=== PATIENT | male | born 1980 | race Caucasian/White ===

== ENCOUNTER 2020-04-27 04:31 | Emergency (ER) | payer SELFPAY ==
[2020-04-27 04:35] VITALS: BP 174/105; PULSE 104; RESP 19; TEMP 36.8; O2SAT 98; BMI 34.8
--- NOTE | 2020-04-27 05:01 | ED_ITS ---
HPI - General Adult General Chief complaint: Anxiety Stated complaint: Anxiety Time Seen by Provider: 04/27/20 04:38 Source: patient Mode of arrival: EMS Limitations: no limitations History of Present Illness HPI narrative: Patient is a 40-year-old male brought in by EMS after he called 911 because of having a panic attack. Patient states that he has had anxiety and panic attacks in the past. He states that he has been on benzodiazepines for many years and came off of them on his own. He does see a mental health provider. He also admits to smoking methamphetamine. He states that he is uncertain as to what caused his symptoms this evening although he does state that he has been around other ?hard core ?meth that aches and states he received some texts earlier today that concerned him. Related Data Allergies Allergy/AdvReac Type Severity Reaction Status Date / Time No Known Drug Allergies Allergy Verified 04/27/20 05:02 Review of Systems Constitutional Constitutional: Denies fever(s) and Denies headache(s) ENT Ears, Nose, Mouth, and Throat: Denies headache(s) Cardiovascular Cardiovascular: Denies chest pain and Denies dyspnea Respiratory Respiratory: Denies dyspnea Gastrointestinal Gastrointestinal: Denies abdominal pain, Denies nausea and Denies vomiting Musculoskeletal Musculoskeletal: Denies arthralgias and Denies myalgias Integumentary/Breasts Skin/Breast: Denies rash Neurologic Neurologic: Denies headache(s) Psychiatric Psychiatric: Reports anxiety, Denies depression, Reports panic attacks and Reports paranoia Patient History Medical History Anxiety (Acute) Drug abuse (Acute) Social History Smoking Status: Former smoker Exam Initial Vital Signs Initial Vital Signs: Vital Signs Temperature 98.3 F 04/27/20 04:35 Pulse Rate 104 H 04/27/20 04:35 Respiratory Rate 19 04/27/20 04:35 Blood Pressure 174/105 H 04/27/20 04:35 Pulse Oximetry 98 04/27/20 04:35 Const General: cooperative and disheveled HENMT Head: normal to inspection and normocephalic Resp Effort & Inspection: normal respiratory effort Auscultation: clear to auscultation bilaterally Cardio Rate: regular rate Rhythm: regular rhythm Skin Rashes: no rashes Neuro General: patient alert, patient awake and patient oriented x3 Extrem General: capillary refill normal Psych Appearance: disheveled Speech and Movement: restless Mood: anxious mood Affect: anxious affect and No hostile Attitude: cooperative Thought Content: phobias and suicidality Course Vital Signs Vital signs: Vital Signs - 8 hr 04/27/20 04:35 Temperature 98.3 F Pulse Rate 104 H Respiratory Rate 19 Blood Pressure 174/105 H Pulse Oximetry 98 Medical Decision Making ECG Data Attestation: I personally reviewed and interpreted this ECG as follows: Prior ECG tracings: not available for review Interpretation: Sinus rhythm Normal axis Normal QRS Normal QTC No ST T wave changes MDM Narrative Medical decision making narrative: Patient was alert oriented x3 with a GCS of 15. When I asked the patient what I could do for him out of the emergency department stated that he just wanted ?reassurance that everything was going to be okay. He states he did not want any medications. He did not want to go back on any benzodiazepines. Patient is somewhat tangential with his thoughts and I do suspect that he is having quite a bit of paranoia however denied any SI or HI. He states that he felt safe back at the [facility] where he is staying. He did mention that he does smoke methamphetamine which I suspect is not helping his situation. I do not feel that the patient meets criteria for grave disability. Do not feel the patient meets criteria for an involuntary admission to the hospital. He stated the emergency department for short period of time states that he did feel better. Feel patient can be safely discharged home. Patient states he feels safe to be sent back where he is staying. He was given return precautions. He expressed understanding and agreement. Discharge Plan Departure Patient Disposition: Home Clinical Impression: Acute anxiety Instructions: DI for Anxiety -- Adult Activity Restrictions/Additional Instructions: Recommend that you continue any and all medications as directed. I recommend that you contact your primary provider for a follow-up. Return to the emergency department for any new or worsening symptoms
[2020-04-27 06:10] VITALS: BP 142/86; PULSE 87; RESP 17; O2SAT 97
== END 2020-04-27 06:11 | disposition home or self-care (01) ==
PROVIDERS: Emergency Provider Emergency Medicine
DX: F41.9 Anxiety disorder, unspecified (principal)
CPT/HCPCS: 93005; 99282; 99283

== ENCOUNTER 2020-05-05 05:49 | Emergency (ER) | payer SELFPAY ==
[2020-05-05 05:51] VITALS: BP 110/59; PULSE 63; RESP 18; TEMP 36.2; O2SAT 98; BMI 33.9
--- NOTE | 2020-05-05 05:56 | ED.AMS ---
HPI - Altered Mental Status <Ferny Henry DO - Last Filed: 05/06/20 18:06> General Chief Complaint: Medical Clearance Stated Complaint: fit for skilled nursing Time Seen by Provider: 05/05/20 05:50 Source: patient and police Limitations: no limitations History of Present Illness HPI narrative: 40-year-old male smoker with history of alcohol abuse and anxiety presents with the police department for medical clearance prior to incarceration. The patient was found reporting libertarian and appeared to be passed out in his car. Apparently, police approached him and he attempted to drive his car away. He was then apprehended and brought initially just for a blood draw but then a medical clearance. Patient has no complaints to me, but seems to be upset with police. He denies headache. blurred vision, CP, or SOB. He denies N/V/D. He was involved in no traumatic events and denies any injury. He denies alcohol or street drugs. MD complaint: intoxication Context: alcohol abuse Associated symptoms: denies other symptoms Related Data Allergies Allergy/AdvReac Type Severity Reaction Status Date / Time No Known Drug Allergies Allergy Verified 04/27/20 05:02 Review of Systems <Ferny Henry DO - Last Filed: 05/06/20 18:06> Constitutional Constitutional: Denies chills, Denies fatigue, Denies fever(s), Denies frequent falls, Denies lethargy and Denies weakness Eyes Eyes: Denies change in vision, Denies eye discharge, Denies irritation and Denies loss of vision ENT Ears, Nose, Mouth, and Throat: Denies change in voice, Denies dizziness, Denies neck pain, Denies sore throat and Denies throat swelling Cardiovascular Cardiovascular: Denies chest pain, Denies irregular heart rhythm, Denies lightheadedness, Denies palpitations, Denies dyspnea, Denies dyspnea on exertion and Denies orthopnea Respiratory Respiratory: Denies cough, Denies dyspnea, Denies dyspnea on exertion and Denies wheezing Gastrointestinal Gastrointestinal: Denies abdominal pain, Denies change in bowel habits, Denies diarrhea, Denies nausea and Denies vomiting Musculoskeletal Musculoskeletal: Denies neck pain and Denies numbness Integumentary/Breasts Skin/Breast: Denies pruritus, Denies erythema, Denies rash and Denies wounds Neurologic Neurologic: Denies behavioral changes, Denies confusion, Denies dizziness, Denies frequent falls, Denies loss of vision, Denies numbness and Denies weakness Psychiatric Psychiatric: Denies anxiety, Denies behavioral changes, Denies confusion, Denies depression, Denies homicidal ideation and Denies suicidal ideation Endocrine Endocrine: Denies fatigue, Denies flushing and Denies palpitations Hematologic/Lymphatic Hematologic/Lymphatic: Denies easy bruising Allergic/Immunologic Allergic/Immunologic: Denies urticaria, Denies throat swelling and Denies wheezing Patient History <Ferny Henry DO - Last Filed: 05/06/20 18:06> Medical History (Updated 05/06/20 @ 16:53 by Pacheco Butterfield MD) Anxiety (Acute) Drug abuse (Acute) Social History Smoking Status: Former smoker Smoking Status: Former smoker Substance Use Type: methamphetamine Exam <Ferny Henry DO - Last Filed: 05/06/20 18:06> Narrative Exam Narrative: GENERAL: [40} year old patient appears stated age. Well-nourished, well-developed patient, in mild distress.Mild slurring, increasingly agitated HEAD: Superficial abrasions on forehead EYES: Pupils equal round and reactive. Extraocular motions intact. No scleral icterus. No injection or drainage. ENT: Nose without bleeding, purulent drainage. Throat without erythema, tonsillar hypertrophy or exudate. Airway patent. NECK: Trachea midline. Non tender CARDIOVASCULAR: Regular rate and rhythm without murmurs, gallops, or rubs. RESPIRATORY: Clear to auscultation. Breath sounds equal bilaterally. No wheezes, rales, or rhonchi. GASTROINTESTINAL: Abdomen soft, non-tender, nondistended. EXTREMITIES: No edema or joint tenderness. BACK: Nontender without deformity or crepitance. No flank tenderness. NEURO: AOx3. SKIN: No rash or erythema of visible areas Initial Vital Signs Initial Vital Signs: Vital Signs Temperature 97.2 F L 05/05/20 05:51 Pulse Rate 63 05/05/20 05:51 Respiratory Rate 18 05/05/20 05:51 Blood Pressure 110/59 L 05/05/20 05:51 Pulse Oximetry 98 05/05/20 05:51 <Pacheco Butterfield MD - Last Filed: 05/06/20 19:00> Initial Vital Signs Initial Vital Signs: Vital Signs Temperature 97.2 F L 05/05/20 05:51 Pulse Rate 63 05/05/20 05:51 Respiratory Rate 18 05/05/20 05:51 Blood Pressure 110/59 L 05/05/20 05:51 Pulse Oximetry 98 05/05/20 05:51 Course <Ferny Henry, DO - Last Filed: 05/06/20 18:06> Course Course Narrative: patient was in process of being cleared and apparently told PD he intended to kill himself by blowing his head off with a shotgun. At that point he tried running from the ED and was contained by PD. He is rapidly escalating and then escorted to room 13 for the protection of patient and staff. Multiple attempts by myself and others to verbally de-escalate and he continues to ramp up and again staff is cleared from the room and PD need to contain him. At this point decision made to use chemical sedation to prevent patient from injuring himself or others and to allow a thorough medical examination. 2100 05/05/2020 Patient Appearance: Disheveled LOC: Alert Speech: Spontaneous, pressured Mood: Angry, anxious Respirations: Normal rate and effort Cardiac: Regular rate and rhythm Behavior: Increased agitation, new threats of suicide, failure of verbal de-escalation Restraint Risk Explained to Patient/Family?: Yes patient ended up responding to verbal deescalation and did not need medications, but kept trying to leave so he was put in locked seclusion. He once again threatened suicide, this time stating he would slit his throat per nursing, i did not hear him say this. He is medically cleared. He makes multiple threats of suicide with plan. He does not want help or think he needs it. He requires hospitalization at mental health facility to help further characterize and stabilize his condition. Susan (SILVANO) has reached out to and has a significant amount of information that has shed some light on this case. 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 His and daughter left him. He lost his job at [employer] and they sold the house. He now lives out of a trailer and frequently has these violent outbursts and threatens to hurt himself but has never acted on any threats. She will be reaching out to a few facilities which may be able to provide help and will let us know as the day wears on. Dr. Delacruz [phone] is prescriber in [place] Orders Ordered: Buprenorphine/Naloxone (Suboxone 8/2 Mg Sl) 3 tab SL DAILY DAMASO Last Admin: 05/06/20 12:21 Dose: 3 tab Documented by: RICKEY Discontinued Medications Cephalexin HCl (Keflex) 500 mg PO NOW ONE Stop: 05/06/20 02:23 Last Admin: 05/06/20 09:31 Dose: 500 mg Documented by: RICKEY Diphenhydramine HCl (Benadryl) 50 mg IM NOW ONE Stop: 05/05/20 06:21 Last Admin: 05/05/20 06:25 Dose: 50 mg Documented by: JOEL Diphenhydramine HCl (Benadryl) 50 mg IM NOW ONE Stop: 05/05/20 21:11 Last Admin: 05/05/20 22:13 Dose: Not Given Documented by: HORTENCIA Diphenhydramine HCl (Benadryl) 50 mg IM NOW ONE Stop: 05/06/20 11:47 Last Admin: 05/06/20 12:10 Dose: 50 mg Documented by: PATSY Diphenhydramine HCl (Benadryl) 50 mg IM NOW ONE Stop: 05/06/20 11:48 Last Admin: 05/06/20 12:18 Dose: Not Given Documented by: RICKEY Haloperidol (Haldol) 5 mg IM NOW ONE Stop: 05/05/20 06:21 Last Admin: 05/05/20 06:25 Dose: 5 mg Documented by: JOEL Haloperidol (Haldol) 5 mg IM NOW ONE Stop: 05/05/20 21:11 Last Admin: 05/05/20 22:13 Dose: Not Given Documented by: HORTENCIA Haloperidol (Haldol) 5 mg IM NOW ONE Stop: 05/06/20 11:47 Last Admin: 05/06/20 12:10 Dose: 5 mg Documented by: PATSY Haloperidol (Haldol) 5 mg IM NOW ONE Stop: 05/06/20 11:49 Last Admin: 05/06/20 12:18 Dose: Not Given Documented by: RICKEY Lorazepam (Ativan) 2 mg IM NOW ONE Stop: 05/05/20 06:21 Last Admin: 05/05/20 06:25 Dose: 2 mg Documented by: JOEL Lorazepam (Ativan) 2 mg IM NOW ONE Stop: 05/05/20 21:11 Last Admin: 05/05/20 22:13 Dose: Not Given Documented by: HORTENCIA Lorazepam (Ativan) 2 mg IM NOW ONE Stop: 05/06/20 11:47 Last Admin: 05/06/20 12:09 Dose: 2 mg Documented by: PATSY Lorazepam (Ativan) 2 mg IM NOW ONE Stop: 05/06/20 11:49 Last Admin: 05/06/20 12:18 Dose: Not Given Documented by: RICKEY Lorazepam (Ativan) 2 mg PO NOW ONE Stop: 05/06/20 16:26 Last Admin: 05/06/20 16:33 Dose: 2 mg Documented by: RICKEY Vital Signs Vital signs: Vital Signs - 8 hr 05/06/20 16:41 Temperature 97.5 F L Pulse Rate 86 Respiratory Rate 16 Blood Pressure 147/80 H Pulse Oximetry 97 <Pacheco Butterfield MD - Last Filed: 05/06/20 19:00> Course Course Narrative: 0725: CHANGE OF SHIFT TRANSFER OF CARE NOTE: Report was provided by . Patient was initially brought in by the police department after reveals found in a car at [place]. The patient was reportedly trying to drive off but was unable to do so because he was impaired and under the influence of something. Initially the patient came in for medical clearance. The patient is chronically on benzodiazepines. The patient then made the statement that he wanted to kill himself by blowing his head off with a shotgun. The patient became agitated and violent. He was administered 5 mg of Haldol and 2 mg of Ativan and 50 mg of Benadryl. Patient was not intoxicated with alcohol. The patient was reported to also be on meds Suboxone. Police brought the patient in with an OBDULIA. The patient is not a voluntary the and may need to be changed to a DCR. A consult with medical social work has been submitted. A restraint order has been initiated by Dr. Henry with a sitter present. 1149: CHANGE IN SHIFT TRANSFER OF CARE NOTE 05/06/2020: THE POLICE WERE CALLED TO RESTRAIN THE PATIENT WHEN HE RAN OUT OF THE EMERGENCY DEPARTMENT AND WAS ESCORTED BACK INTO ROOM 13. The patient has become violent and threatening and beating on the persaud and doors. The patient will be administered Haldol 5 mg IM, Ativan 2 mg IM and Benadryl 50 mg IM. The patient is being further evaluated by SILVANO who is calling and talking to multiple members and the patient's physicians to make a determination for this patient. The patient earlier had told Dr. Henry that he wanted to commit suicide and blow his head off with a shotgun. I just spoke with the patient's outpatient psychiatrist Dr. Delacruz who states that he has been using the Suboxone 24 mg per day to help control and manage his the arm depression and activities. He placing the patient back on his Suboxone 24 mg which may help to manage his behavior. He agrees with having DCR evaluate the patient because the patient has been headed in this direction of for a while. SILVANO and LUANNE Perez presented the patient with a court order to be sent to a [facility] to be evaluated. Orders Ordered: Buprenorphine/Naloxone (Suboxone 8/2 Mg Sl) 3 tab SL DAILY DAMASO Last Admin: 05/06/20 12:21 Dose: 3 tab Documented by: RICKEY Discontinued Medications Cephalexin HCl (Keflex) 500 mg PO NOW ONE Stop: 05/06/20 02:23 Last Admin: 05/06/20 09:31 Dose: 500 mg Documented by: RICKEY Diphenhydramine HCl (Benadryl) 50 mg IM NOW ONE Stop: 05/05/20 06:21 Last Admin: 05/05/20 06:25 Dose: 50 mg Documented by: JOEL Diphenhydramine HCl (Benadryl) 50 mg IM NOW ONE Stop: 05/05/20 21:11 Last Admin: 05/05/20 22:13 Dose: Not Given Documented by: HORTENCIA Diphenhydramine HCl (Benadryl) 50 mg IM NOW ONE Stop: 05/06/20 11:47 Last Admin: 05/06/20 12:10 Dose: 50 mg Documented by: PATSY Diphenhydramine HCl (Benadryl) 50 mg IM NOW ONE Stop: 05/06/20 11:48 Last Admin: 05/06/20 12:18 Dose: Not Given Documented by: RICKEY Haloperidol (Haldol) 5 mg IM NOW ONE Stop: 05/05/20 06:21 Last Admin: 05/05/20 06:25 Dose: 5 mg Documented by: JOEL Haloperidol (Haldol) 5 mg IM NOW ONE Stop: 05/05/20 21:11 Last Admin: 05/05/20 22:13 Dose: Not Given Documented by: HORTENCIA Haloperidol (Haldol) 5 mg IM NOW ONE Stop: 05/06/20 11:47 Last Admin: 05/06/20 12:10 Dose: 5 mg Documented by: PATSY Haloperidol (Haldol) 5 mg IM NOW ONE Stop: 05/06/20 11:49 Last Admin: 05/06/20 12:18 Dose: Not Given Documented by: RICKEY Lorazepam (Ativan) 2 mg IM NOW ONE Stop: 05/05/20 06:21 Last Admin: 05/05/20 06:25 Dose: 2 mg Documented by: JOEL Lorazepam (Ativan) 2 mg IM NOW ONE Stop: 05/05/20 21:11 Last Admin: 05/05/20 22:13 Dose: Not Given Documented by: HORTENCIA Lorazepam (Ativan) 2 mg IM NOW ONE Stop: 05/06/20 11:47 Last Admin: 05/06/20 12:09 Dose: 2 mg Documented by: PATSY Lorazepam (Ativan) 2 mg IM NOW ONE Stop: 05/06/20 11:49 Last Admin: 05/06/20 12:18 Dose: Not Given Documented by: RICKEY Lorazepam (Ativan) 2 mg PO NOW ONE Stop: 05/06/20 16:26 Last Admin: 05/06/20 16:33 Dose: 2 mg Documented by: RICKEY Vital Signs Vital signs: Vital Signs - 8 hr 05/06/20 16:41 Temperature 97.5 F L Pulse Rate 86 Respiratory Rate 16 Blood Pressure 147/80 H Pulse Oximetry 97 MDM - Altered Mental Status <Ferny Henry DO - Last Filed: 05/06/20 18:06> Lab Data Result diagrams: 05/05/20 06:35 05/05/20 06:35 Labs: Lab Results 05/05/20 05/05/20 05/05/20 Range/Units 06:35 06:35 06:35 WBC 11.2 H (4.5-11.0) X10^3/uL RBC 5.17 (4.5-5.9) X10^6/uL Hgb 13.8 (13.5-17.5) g/dL Hct 42.1 (41-53) % MCV 81.5 (80-100) fL MCH 26.7 (26-34) PG MCHC 32.8 (30-36) % RDW 17.0 H (11.6-14.8) % Plt Count 244 (150-400) X10^3/uL Neut % (Auto) 60.2 (50-75) % Lymph % (Auto) 22.6 L (25-40) % [place] % (Auto) 8.6 (3-14) % Eos % (Auto) 7.5 H (2-4) % Baso % (Auto) 1.1 (0-2) % Neut # (Auto) 6800 (7957-6618) /uL Lymph # (Auto) 2500 (7872-8496) /uL [place] # (Auto) 1000 H (0-900) /uL Eos # (Auto) 800 H (0-450) /uL Baso # (Auto) 100 (0-100) /uL Sodium 139 (137-145) mmol/L Potassium 4.1 (3.4-5.1) mmol/L Chloride 102 (98-107) mmol/L Carbon Dioxide 34 H (22-32) mmol/L BUN 20 (9-20) mg/dL Creatinine 0.71 (0.66-1.25) mg/dL Estimated GFR > 60.0 (>60) mL/min BUN/Creatinine Ratio 28.2 H (6-22) Glucose 119 H (70-100) mg/dL Calcium 10.1 (8.4-10.2) mg/dL Total Bilirubin 0.5 (0.2-1.3) mg/dL AST 30 (17-59) IU/L ALT 40 (<50) IU/L Alkaline Phosphatase 81 (38-126) U/L Total Protein 7.6 (6.3-8.2) g/dL Albumin 4.7 (3.5-5.0) g/dL Globulin 2.9 (1.7-4.1) g/dL Albumin/Globulin Ratio 1.6 (1.0-2.8) TSH 1.04 (0.47-4.68) uIU/mL Urine Color Urine Appearance Urine pH (4.5-8.0) Ur Specific [place] (1.000-1.035) Urine Protein (Negative) Urine Glucose (UA) (Negative) g/dL Urine Ketones (NEGATIVE) Urine Occult Blood (Negative) Urine Nitrate (Negative) Urine Bilirubin (NEGATIVE) Urine Urobilinogen (0.2) E.U./dL Ur Leukocyte Esterase (NEGATIVE) Urine RBC (0-5/HPF) Urine WBC (0-5/HPF) Ur Squamous Epith Cells (0-5/HPF) Amorphous Sediment Urine Bacteria (None) Urine Mucus (Negative) Ur Culture Indicated? Salicylates < 1.0 (<20) mg/dL U Opiates 300ng/mL cut (Negative) Ur Oxycodone Screen (Negative) Urine Methadone Screen (Negative) Acetaminophen < 10 L (10-30) ug/mL Ur Barbiturates Screen (Negative) U Tricyclic Antidepress (Negative) Ur Phencyclidine Scrn (Negative) Ur Amphetamines Screen (Negative) U Methamphetamines Scrn (Negative) Ur MDMA Scrn (Ecstasy) (Negative) U Benzodiazepines Scrn (Negative) Urine Cocaine Screen (Negative) U Marijuana (THC) Screen (Negative) Ethyl Alcohol < 10 ( - 10) mg/dL 05/05/20 05/05/20 05/05/20 Range/Units 06:52 06:52 18:15 WBC (4.5-11.0) X10^3/uL RBC (4.5-5.9) X10^6/uL Hgb (13.5-17.5) g/dL Hct (41-53) % MCV (80-100) fL MCH (26-34) PG MCHC (30-36) % RDW (11.6-14.8) % Plt Count (150-400) X10^3/uL Neut % (Auto) (50-75) % Lymph % (Auto) (25-40) % [place] % (Auto) (3-14) % Eos % (Auto) (2-4) % Baso % (Auto) (0-2) % Neut # (Auto) (7554-1643) /uL Lymph # (Auto) (5183-8137) /uL [place] # (Auto) (0-900) /uL Eos # (Auto) (0-450) /uL Baso # (Auto) (0-100) /uL Sodium (137-145) mmol/L Potassium (3.4-5.1) mmol/L Chloride (98-107) mmol/L Carbon Dioxide (22-32) mmol/L BUN (9-20) mg/dL Creatinine (0.66-1.25) mg/dL Estimated GFR (>60) mL/min BUN/Creatinine Ratio (6-22) Glucose (70-100) mg/dL Calcium (8.4-10.2) mg/dL Total Bilirubin (0.2-1.3) mg/dL AST (17-59) IU/L ALT (<50) IU/L Alkaline Phosphatase (38-126) U/L Total Protein (6.3-8.2) g/dL Albumin (3.5-5.0) g/dL Globulin (1.7-4.1) g/dL Albumin/Globulin Ratio (1.0-2.8) TSH (0.47-4.68) uIU/mL Urine Color Yellow Urine Appearance Slightly cloudy Urine pH 5.5 (4.5-8.0) Ur Specific [place] 1.025 (1.000-1.035) Urine Protein 1+ H (Negative) Urine Glucose (UA) Negative (Negative) g/dL Urine Ketones Negative (NEGATIVE) Urine Occult Blood Negative (Negative) Urine Nitrate Positive (Negative) Urine Bilirubin Negative (NEGATIVE) Urine Urobilinogen 0.2 (0.2) E.U./dL Ur Leukocyte Esterase Trace H (NEGATIVE) Urine RBC 0-1/hpf None seen (0-5/HPF) Urine WBC 5-10/hpf H 30-100/hpf H D (0-5/HPF) Ur Squamous Epith Cells 1-5 /hpf (0-5/HPF) Amorphous Sediment 1+ Urine Bacteria Moderate (10-30) H Moderate (10-30) H (None) Urine Mucus 2+ H (Negative) Ur Culture Indicated? Specimen cultured Specimen cultured Salicylates (<20) mg/dL U Opiates 300ng/mL cut Negative (Negative) Ur Oxycodone Screen Negative (Negative) Urine Methadone Screen Negative (Negative) Acetaminophen (10-30) ug/mL Ur Barbiturates Screen Negative (Negative) U Tricyclic Antidepress Negative (Negative) Ur Phencyclidine Scrn Negative (Negative) Ur Amphetamines Screen Negative (Negative) U Methamphetamines Scrn Negative (Negative) Ur MDMA Scrn (Ecstasy) Negative (Negative) U Benzodiazepines Scrn Positive H (Negative) Urine Cocaine Screen Negative (Negative) U Marijuana (THC) Screen Negative (Negative) Ethyl Alcohol ( - 10) mg/dL Urine Dip Bedside Urine Glucose Negative Bedside Urine Bilirubin - Negative Bedside Urine Ketone - Negative Urine Specific [place] 1.025 Bedside Urine Occult Blood - Negative Bedside Urine pH 6.0 Bedside Urine Protein + 30 Bedside Urine Urobilinogen +/- 1mg Bedside Urine Nitrite + Positive Bedside Urine Leukocytes + 70 Esterase <Pacheco Butterfield MD - Last Filed: 05/06/20 19:00> Lab Data Labs: Lab Results 05/05/20 05/05/20 05/05/20 Range/Units 06:35 06:35 06:35 WBC 11.2 H (4.5-11.0) X10^3/uL RBC 5.17 (4.5-5.9) X10^6/uL Hgb 13.8 (13.5-17.5) g/dL Hct 42.1 (41-53) % MCV 81.5 (80-100) fL MCH 26.7 (26-34) PG MCHC 32.8 (30-36) % RDW 17.0 H (11.6-14.8) % Plt Count 244 (150-400) X10^3/uL Neut % (Auto) 60.2 (50-75) % Lymph % (Auto) 22.6 L (25-40) % [place] % (Auto) 8.6 (3-14) % Eos % (Auto) 7.5 H (2-4) % Baso % (Auto) 1.1 (0-2) % Neut # (Auto) 6800 (7088-9822) /uL Lymph # (Auto) 2500 (2869-4808) /uL [place] # (Auto) 1000 H (0-900) /uL Eos # (Auto) 800 H (0-450) /uL Baso # (Auto) 100 (0-100) /uL Sodium 139 (137-145) mmol/L Potassium 4.1 (3.4-5.1) mmol/L Chloride 102 (98-107) mmol/L Carbon Dioxide 34 H (22-32) mmol/L BUN 20 (9-20) mg/dL Creatinine 0.71 (0.66-1.25) mg/dL Estimated GFR > 60.0 (>60) mL/min BUN/Creatinine Ratio 28.2 H (6-22) Glucose 119 H (70-100) mg/dL Calcium 10.1 (8.4-10.2) mg/dL Total Bilirubin 0.5 (0.2-1.3) mg/dL AST 30 (17-59) IU/L ALT 40 (<50) IU/L Alkaline Phosphatase 81 (38-126) U/L Total Protein 7.6 (6.3-8.2) g/dL Albumin 4.7 (3.5-5.0) g/dL Globulin 2.9 (1.7-4.1) g/dL Albumin/Globulin Ratio 1.6 (1.0-2.8) TSH 1.04 (0.47-4.68) uIU/mL Urine Color Urine Appearance Urine pH (4.5-8.0) Ur Specific [place] (1.000-1.035) Urine Protein (Negative) Urine Glucose (UA) (Negative) g/dL Urine Ketones (NEGATIVE) Urine Occult Blood (Negative) Urine Nitrate (Negative) Urine Bilirubin (NEGATIVE) Urine Urobilinogen (0.2) E.U./dL Ur Leukocyte Esterase (NEGATIVE) Urine RBC (0-5/HPF) Urine WBC (0-5/HPF) Ur Squamous Epith Cells (0-5/HPF) Amorphous Sediment Urine Bacteria (None) Urine Mucus (Negative) Ur Culture Indicated? Salicylates < 1.0 (<20) mg/dL U Opiates 300ng/mL cut (Negative) Ur Oxycodone Screen (Negative) Urine Methadone Screen (Negative) Acetaminophen < 10 L (10-30) ug/mL Ur Barbiturates Screen (Negative) U Tricyclic Antidepress (Negative) Ur Phencyclidine Scrn (Negative) Ur Amphetamines Screen (Negative) U Methamphetamines Scrn (Negative) Ur MDMA Scrn (Ecstasy) (Negative) U Benzodiazepines Scrn (Negative) Urine Cocaine Screen (Negative) U Marijuana (THC) Screen (Negative) Ethyl Alcohol < 10 ( - 10) mg/dL 05/05/20 05/05/20 05/05/20 Range/Units 06:52 06:52 18:15 WBC (4.5-11.0) X10^3/uL RBC (4.5-5.9) X10^6/uL Hgb (13.5-17.5) g/dL Hct (41-53) % MCV (80-100) fL MCH (26-34) PG MCHC (30-36) % RDW (11.6-14.8) % Plt Count (150-400) X10^3/uL Neut % (Auto) (50-75) % Lymph % (Auto) (25-40) % [place] % (Auto) (3-14) % Eos % (Auto) (2-4) % Baso % (Auto) (0-2) % Neut # (Auto) (3656-7774) /uL Lymph # (Auto) (6697-5085) /uL [place] # (Auto) (0-900) /uL Eos # (Auto) (0-450) /uL Baso # (Auto) (0-100) /uL Sodium (137-145) mmol/L Potassium (3.4-5.1) mmol/L Chloride (98-107) mmol/L Carbon Dioxide (22-32) mmol/L BUN (9-20) mg/dL Creatinine (0.66-1.25) mg/dL Estimated GFR (>60) mL/min BUN/Creatinine Ratio (6-22) Glucose (70-100) mg/dL Calcium (8.4-10.2) mg/dL Total Bilirubin (0.2-1.3) mg/dL AST (17-59) IU/L ALT (<50) IU/L Alkaline Phosphatase (38-126) U/L Total Protein (6.3-8.2) g/dL Albumin (3.5-5.0) g/dL Globulin (1.7-4.1) g/dL Albumin/Globulin Ratio (1.0-2.8) TSH (0.47-4.68) uIU/mL Urine Color Yellow Urine Appearance Slightly cloudy Urine pH 5.5 (4.5-8.0) Ur Specific [place] 1.025 (1.000-1.035) Urine Protein 1+ H (Negative) Urine Glucose (UA) Negative (Negative) g/dL Urine Ketones Negative (NEGATIVE) Urine Occult Blood Negative (Negative) Urine Nitrate Positive (Negative) Urine Bilirubin Negative (NEGATIVE) Urine Urobilinogen 0.2 (0.2) E.U./dL Ur Leukocyte Esterase Trace H (NEGATIVE) Urine RBC 0-1/hpf None seen (0-5/HPF) Urine WBC 5-10/hpf H 30-100/hpf H D (0-5/HPF) Ur Squamous Epith Cells 1-5 /hpf (0-5/HPF) Amorphous Sediment 1+ Urine Bacteria Moderate (10-30) H Moderate (10-30) H (None) Urine Mucus 2+ H (Negative) Ur Culture Indicated? Specimen cultured Specimen cultured Salicylates (<20) mg/dL U Opiates 300ng/mL cut Negative (Negative) Ur Oxycodone Screen Negative (Negative) Urine Methadone Screen Negative (Negative) Acetaminophen (10-30) ug/mL Ur Barbiturates Screen Negative (Negative) U Tricyclic Antidepress Negative (Negative) Ur Phencyclidine Scrn Negative (Negative) Ur Amphetamines Screen Negative (Negative) U Methamphetamines Scrn Negative (Negative) Ur MDMA Scrn (Ecstasy) Negative (Negative) U Benzodiazepines Scrn Positive H (Negative) Urine Cocaine Screen Negative (Negative) U Marijuana (THC) Screen Negative (Negative) Ethyl Alcohol ( - 10) mg/dL Urine Dip Bedside Urine Glucose Negative Bedside Urine Bilirubin - Negative Bedside Urine Ketone - Negative Urine Specific [place] 1.025 Bedside Urine Occult Blood - Negative Bedside Urine pH 6.0 Bedside Urine Protein + 30 Bedside Urine Urobilinogen +/- 1mg Bedside Urine Nitrite + Positive Bedside Urine Leukocytes + 70 Esterase Discharge Plan Departure Patient Disposition: Xfer Psychiatric Hosp Clinical Impression: Suicidal ideation, Psychomotor agitation Major depression Qualifiers: Major depression recurrence: recurrent Active/Remission status: currently active Major depression episode severity: severe Psychotic features: with psychotic features Qualified Code(s): F33.3 - Major depressive disorder, recurrent, severe with psychotic symptoms Activity Restrictions/Additional Instructions: *You have been diagnosed with [ anxiety, medical clearance for incarceration ] *What to do: *Take medications as directed *Follow up with your primary care provider in 2-3 days, call for an appointment. Let them know you were seen in the Emergency Department and that we ask that you be seen in follow up *Return to ER if you should have any new, worsening or concerning symptoms Referrals: [facility] [Outside] Restraint [id number] <Ferny Henry DO - Last Filed: 05/06/20 18:06> Restraint [id number] Evaluation [id number] #1: Date: 05/05/20 Time: 06:19 Patient Appearance: Disheveled Level of Consciousness: Alert Speech Pattern: Spontaneous Speech Mood Description: Angry Respirations: Normal respiratory rate Behavior necessitating restraint: Agitated Restraint Risks: Airway obstruction Restraint risks explained to patient: Yes Restraint risks explained to family: Yes
--- NOTE | 2020-05-05 06:09 | PC.NURSE ---
Pt was to be discharged in custody of [employer] when he attempted to run and stated that he will kill himself when he is released. Plan now is to hold pt on OBDULIA for mental health eval.
[2020-05-05] MEDS: LORazepam 2 MG/ML INJ IM (06:25)
[2020-05-05] MEDS: diphenhydrAMINE 50 MG/ML VIAL IM (06:25)
[2020-05-05] MEDS: HALOPERIDOL 5 MG/ML VIAL IM (06:25)
--- NOTE | 2020-05-05 06:28 | PC.NURSE ---
Addendum entered by Chris Roberto 05/05/20 06:42: [employer] brought in additional Pt belonings to add to previous inventory. $100 x1, $20.00 x1, .25 x2, 1 cell phone, 1 usb printed circuit board pcb draftsman, 1 hand inventory assistant, 1 Prescription med container stating Propranolol, 1 jacket Original Note: Pt belongings: Shoes 1 pair white, Shirt, Boxers, Sweatpant, Socks 1 pair, Das $40. 00 (20 x 2), [place]
--- NOTE | 2020-05-05 06:40 | PC.NURSE ---
Pt urinated using the urinal and after he was done the MD went and spoke with the pt to update him on his situation. The pt then tried to diehl the door and the doctor. The door to room 13 was then closed before the pt could harm the staff. Pt being constantly monitored by sitter and monitor.
[2020-05-05 06:44] LABS: Add Manual Diff / Slide Review NO; Basophils Absolute Auto 100 /uL (0-100); Basophils Percent Auto 1.1 % (0-2); Eosinophils Absolute Auto 800 /uL (0-450); Eosinophils Percent Auto 7.5 % (2-4); Hematocrit 42.1 % (41-53); Hemoglobin 13.8 g/dL (13.5-17.5); Lymphocytes Absolute Auto 2500 /uL (1100-4500); Lymphocytes Percent Auto 22.6 % (25-40); Mean Corpuscular HGB Conc 32.8 % (30-36); Mean Corpuscular Hemoglobin 26.7 PG (26-34); Mean Corpuscular Volume 81.5 fL (80-100); Monocytes Absolute Auto 1000 /uL (0-900); Monocytes Percent Auto 8.6 % (3-14); Neutrophils Absolute Auto 6800 /uL (1500-7000); Neutrophils Percent Auto 60.2 % (50-75); Platelet Count 244 X10^3/uL (150-400); Red Blood Cell Count 5.17 X10^6/uL (4.5-5.9); White Blood Cell Count 11.2 X10^3/uL (4.5-11.0)
--- NOTE | 2020-05-05 06:52 | PC.NURSE ---
Pt in Rm door closed after stating he is going to leave he is pounding on door
--- NOTE | 2020-05-05 06:54 | PC.NURSE ---
Pt has stood mattress up against wall and removed all clothing after which he has begun punching mattress and door
[2020-05-05 06:55] LABS: Acetaminophen < 10 ug/mL (10-30); Alanine Aminotransferase 40 IU/L (<50); Albumin 4.7 g/dL (3.5-5.0); Albumin Globulin Ratio 1.6 (1.0-2.8); Alkaline Phosphatase 81 U/L (38-126); Aspartate Aminotransferase 30 IU/L (17-59); BUN Creatinine Ratio 28.2 (6-22); Bilirubin Total 0.5 mg/dL (0.2-1.3); Blood Urea Nitrogen 20 mg/dL (9-20); Calcium 10.1 mg/dL (8.4-10.2); Carbon Dioxide 34 mmol/L (22-32); Chloride 102 mmol/L (98-107); Estimated Glomerular Filt Rate > 60.0 mL/min (>60); Ethanol (ETOH) < 10 mg/dL; Globulin 2.9 g/dL (1.7-4.1); Glucose 119 mg/dL (70-100); HEMOLYSIS < 15 (0-50); Potassium 4.1 mmol/L (3.4-5.1); Salicylate < 1.0 mg/dL (<20); Sodium 139 mmol/L (137-145); Total Protein 7.6 g/dL (6.3-8.2)
[2020-05-05 06:59] LABS: Bilirubin Urine UA NEGATIVE (NEGATIVE); Color Urine UA YELLOW; Glucose Urine UA NEGATIVE (Negative); Ketones Urine UA NEGATIVE (NEGATIVE); Leukocyte Esterase Urine UA TRACE (NEGATIVE); Nitrite Urine UA POSITIVE (Negative); Occult Blood Urine UA NEGATIVE (Negative); Protein Urine UA 1+ (Negative); Specific Gravity Urine UA 1.025 (1.000-1.035); Urobilinogen Urine UA 0.2 E.U./dL (0.2); pH Urine UA 5.5 (4.5-8.0)
[2020-05-05 07:01] LABS: Appearance Urine UA Slightly Cloudy
--- NOTE | 2020-05-05 07:02 | PC.NURSE ---
Pt continues to remain unclothed and punching mattress and doors
--- NOTE | 2020-05-05 07:04 | PC.NURSE ---
Pt has removed his clothing, is pacing the room, and banging on the door.
[2020-05-05 07:06] LABS: Ur Creatinine 50 (Normal)
[2020-05-05 07:07] LABS: UR Morphine/Opiate cutoff 300 Negative (Negative); Ur Specific Gravity 1.025 (Normal); Urine Amphetamines Negative (Negative); Urine Barbiturates Negative (Negative); Urine Benzodiazepines Positive (Negative); Urine Cocaine Negative (Negative); Urine MDMA Negative (Negative); Urine Methadone Negative (Negative); Urine Methamphetamines Negative (Negative); Urine Oxycodone Negative (Negative); Urine Phencyclidine Negative (Negative); Urine Tetrahydrocannabinol Negative (Negative); Urine Tricyclic Antidepressant Negative (Negative); Urine pH 5.5 (Normal)
[2020-05-05 07:13] LABS: Bacteria Urine Moderate (10-30); Culture Indicated Urine Specimen Cultured; RBC Urine 0-1/HPF (0-5/HPF); WBC Urine 5-10/HPF (0-5/HPF)
--- NOTE | 2020-05-05 07:15 | PC.NURSE ---
Report given to TIO Mcneal and TIO Galvan
--- NOTE | 2020-05-05 07:15 | PC.NURSE ---
Pt trying to put pants on via pant leg over head.
[2020-05-05 07:30] LABS: Thyroid Stimulating Hormone 1.04 uIU/mL (0.47-4.68)
--- NOTE | 2020-05-05 07:35 | PC.NURSE ---
Pt has been yelling, banging on the door, and pacing since I resumed 1:1 watch @ 700. Pt is just now laying down on mattress @ 740. Respirations are 13 and deep. Pt appears to be sleeping.
--- NOTE | 2020-05-05 08:56 | PC.NURSE ---
Pt has not changed sleeping position. Pt is snoring and respirations are 14 and deep.
--- NOTE | 2020-05-05 09:09 | PC.NURSE ---
Door opened, patient sleeping. Seclusion discontinued.
--- NOTE | 2020-05-05 09:46 | PC.NURSE ---
Patient awake and alert, is calm and cooperative and responding to my questions appropriately. I explained to him that the door will remain open as long as he stays in the room and does not try to leave. I also told him if he tried to run again then I would have to call the police. He asked when can I go? I explained to him that social work would need to come and speak with him. He denies any suicidal or homicidal ideation at this time. Water given and food tray ordered for patient.
[2020-05-05 09:50] VITALS: BP 129/84; PULSE 73; RESP 16; TEMP 36.1; O2SAT 99
--- NOTE | 2020-05-05 10:28 | PC.NURSE ---
Pt allowed me to take vitals and give him warm blankets at 950. Pt layed back down when I left the room and has been sleeping since.
--- NOTE | 2020-05-05 11:30 | PC.NURSE ---
LUANNE Ervin attempted to speak with patient however he kept falling asleep while talking to her. She reports she will come back soon to try again. Food at bedside.
--- NOTE | 2020-05-05 12:10 | PC.NURSE ---
Addendum entered by Rika Bustos CNA 05/05/20 12:50: I offered the pt a urinal and asked if he knew how to use it. He said that he knew how and did not have to urinate. Addendum entered by Rika Bustos CNA 05/05/20 12:35: Patient finally able to wake up and sit up. Pt ate two sandwiches and a fig richter. Pt was calm while talking to me and thanked me for the food and said it helps a lot. The social and political studies professor is back now to talk while he is awake. Original Note: I asked pt if he was hungry and he was able to reply and say he wanted his lunch. I left the lunch in patients room but he seems to fall back asleep as soon as I leave the room so unsure if he will wake up enough to eat.
[2020-05-05 13:05] VITALS: BP 96/45; PULSE 67; RESP 14; TEMP 35.9; O2SAT 97
--- NOTE | 2020-05-05 13:18 | PC.NURSE ---
BP was 96/45 on the right arm @ 1305. Patient was asleep and laying on his left side.
--- NOTE | 2020-05-05 13:25 | CM.SWNOTE ---
Patient is a 40 year old male who was admitted to [facility] ED on 05/05/20 for [facility] Senior Care need. Unclear if pt has insurance as he was unable to provide information at time of admit to ED and unsure if he is established with PCP. Per MD, pt has been sleeping soundly since his medication sedation was administered and SHOP TAILOR APPRENTICE attempted to meet bedside with pt a couple times as pt was very difficult to wake enough to participate in discussion. Pt was able to sit up and eat some lunch around 1200 and SHOP TAILOR APPRENTICE met bedside with pt and explain role and pt appeared somewhat unkept and displaying signs of ongoing drowsiness as evidenced by pt struggling to keep his eyes open and wanting to lay back down but SW requested pt remain seated upright to better stay awake. Pt's speech was slow and garbled and somewhat slurred and unclear if this is due to medications or this is patient's baseline. Very difficult to get specific information from the patient at this time in regards to historical information and pt had difficulty having linear discussion. Pt did not appear to be reacting to any auditory or visual disturbance. Pt was able to state that he has no memory of the precipitating events that led to his admission to the ED or the police involvement. Pt states he lives in an RV that he sometimes has at an park and other times parked randomly. Pt does not have any concerns with basic needs and that he has lived around [place] for a while. Pt denies any local friends or family but states he had plans to meet up with his Mother but unclear where or when. Pt declined SHOP TAILOR APPRENTICE attempting to call his mother and no contact information in pt's chart on next contacts. Pt denies any feelings of depression and states I feel a lot better and confirms that he has been established with a Mental health therapist but unclear how often or where his therapist is located. Pt clearly states he has no suicidal ideations today and is calm and thankful and states he would be interested in discharging today but has no plans about what he will do at discharge. Pt clearly starting to fall back asleep and APPLICATIONS INSTRUCTOR will plan to try to get pt to ambulate to determine his stability with ambulation. Difficult to determine pt's baseline behaviors and potential needs but pt denying any suicidal or homicidal ideation and states that he has no needs for d/c in regards to housing and basic needs. Pt potentially disabled and a higher risk but denying any mental health needs. Plan: SW to follow after pt gets more rest and attempts to ambulate with staff towards potentially determining any further SW/Discharge planning needs. LUANNE Rhodes Discharge Planning/Care Management ED Psychiatric Symptoms Assessment Start: 05/05/20 07:43 Freq: Status: Active Protocol: Document 05/05/20 07:43 KEB (Rec: 05/05/20 07:48 KEB [id number]) Psychiatric Symptoms Assessment Symptoms/Complaint Suicidal Ideation Onset this morning Duration unknown History Of Same unknown Associated Psychiatric Symptoms Suicidal Ideation Associated Symptoms Confusion If Self Harm Admits Thoughts of Self Harm Details of Plan Stephen brought in as clear to book with police, he tried to run for the door and stated he would kill himself when he left the ER. No clear plan. Involuntary hold. Level of Consciousness Sedated Patient Behavior/Mood Asleep Suicidal Ideation Vague Suicide Plan No Plan SHOP TAILOR APPRENTICE - Hat Brim Curler Assessment Start: 05/05/20 13:21 Freq: Status: Active Protocol: Document 05/05/20 13:21 BF (Rec: 05/05/20 13:25 BF [id number]) SHOP TAILOR APPRENTICE/Hat Brim Curler Assessment Start date 05/05/20 Visit Start Time 11:00 End date 05/05/20 Visit End Time 11:20 Total time Care Management spent on 60 min patient visit-in minutes Presenting Problem Pt presented to ED via [place] [employer] as pt was found unresponsive in his vehicle and fire dept had to take off the door to get to the patient and then [employer] requested [facility] to medically clear pt to be fit for nursing home. Pt then became agitated and attempted to leave after making suicidal statements of shooting himself and then became chemically restrained with medications.
--- NOTE | 2020-05-05 16:00 | PC.NURSE ---
Patient is asleep.
--- NOTE | 2020-05-05 16:32 | PC.NURSE ---
Patient is asleep.
[2020-05-05 17:10] VITALS: BP 112/75; PULSE 64; RESP 17; O2SAT 99
--- NOTE | 2020-05-05 17:54 | PC.NURSE ---
Patient remains asleep.
--- NOTE | 2020-05-05 18:02 | PC.NURSE ---
Offered dinner to patient and he opened his eyes and sat up and stated he would like to eat. Provided safety tray for meal.
--- NOTE | 2020-05-05 18:25 | PC.NURSE ---
Patient ate dinner and stated he was confused about how he came to be in the ER. States he is living at [facility] and that the last thing he remembers is going to bed after his mom visited him there but he doesn't remember which day of the week that was.
[2020-05-05 18:26] LABS: RBC Urine None Seen (0-5/HPF)
[2020-05-05 18:48] LABS: Amorphous Sediment Urine 1+; Bacteria Urine Moderate (10-30); Culture Indicated Urine Specimen Cultured; Mucus Urine 2+ (Negative); Squamous Epithelial Cell Urine 1-5 /HPF (0-5/HPF); WBC Urine 30-100/HPF (0-5/HPF)
--- NOTE | 2020-05-05 21:08 | PC.NURSE ---
Patient's came into the ED. The patient's came into the ED and is talking to him. The patient is making statements that he wants to get a knife and cut his throat. He has been confined to his room and has the door locked. He is being reoriented. Kaylah: [phone]
--- NOTE | 2020-05-05 21:09 | PC.NURSE ---
ANODIZE MACHINE OPERATOR/LABORATORY ANIMAL CARE VETERINARIAN Note: Pt. was calm and laying down. Pt. arrived at 2054 and Pt. became agitated and began yelling. Pt. stated I want to leave. requested the door to be closed. Pt. began to slam his hand on the door and yell I'm right here. is sitting by the door and communicating through the intercom.
--- NOTE | 2020-05-05 21:15 | PC.NURSE ---
Kaylah stated that they and sold their house and ever since then the patient has been not doing well.
--- NOTE | 2020-05-05 22:09 | PC.NURSE ---
Patient's mom called and wanted an update. The patient gave verbal consent to update the mom. She offered her phone number and name: Arleen Elmore:
--- NOTE | 2020-05-05 22:13 | PC.NURSE ---
The patient became agitated and wanted to leave or kill himself when his came. Provider ordered physical and chemical restraints but the patient quickly became calm and layed down to sleep. The order for restraints were no longer necessary. This was discussed wit the provider.
--- NOTE | 2020-05-05 23:01 | PC.NURSE ---
pt laying down
--- NOTE | 2020-05-06 00:01 | PC.NURSE ---
Pt eyes closed chest rising and falling
--- NOTE | 2020-05-06 01:01 | PC.NURSE ---
Pt lying on mattress on floor, eyes closed chest rising and falling
--- NOTE | 2020-05-06 02:08 | PC.NURSE ---
Pt briefly awake, wondering where he is, how he got here and why is he here. Nurse and notified, Pt has returned to mattress on floor before speaking with ED
--- NOTE | 2020-05-06 02:34 | PC.NURSE ---
I spoke with Jenna with [employer] for dispatch of DCR Attestation has been faxed
--- NOTE | 2020-05-06 04:17 | PC.NURSE ---
Pt lying on mattress on floor eyes closed chest rising and falling
--- NOTE | 2020-05-06 08:04 | CM.SWNOTE ---
Addendum entered by LUANNE Rhodes 05/06/20 10:33: ADD: Message from [facility] Inpt MH Unit stating they received a call last night inquiring about a male bed and request call back if bed still needed for mental health. SW called fan blade truer and updated and she states DCR currently assessing pt to determine if meets OBDULIA and will update her on possible open bed at [facility]. BF Original Note: Ongoing d/c planning: CRM FUNCTIONAL ANALYST continued to attempt to assess pt yesterday throughout the day with minimal success due to pt's inability to remain alert and oriented and very little clear information able to be gathered from pt himself and no other contacts provided by pt in order to call to get historical information. Per RN and MD notes, pt began to decompensate in the evening but pt's spouse Kaylah [phone] arrived at the ED and was able to talk with pt and provide much clearer historical information to hospital staff overnight. Pt's mother Arleen Elmore also called ([phone]) and pt provided verbal consent to update his mother as well. Pt escalated and began making suicidal statements and had to remain in seclusion. ED staff contacted [facility] and requested DCR be dispatched and DCR began the process of attempting to secure an OBDULIA bed for pt. Per family, pt has long history of bezo abuse and began decline in his functioning over the past two years and and Dtr from pt and sold their home and pt has been staying at [facility] and has had increasing episodes of anxiety and mental instability without any hx of suicide attempts yet but suicidal ideation and statements. DCR contacted family and received additional information towards pt meeting OBDULIA criteria. Per RN this morning, [facility] may have a bed and will be contacted this morning and DCR requested to be contacted when pt wakes this morning and so far pt still sleeping as of 0800. Plan: SW to follow just to confirm DCR is actively continuing to find Involuntary placement for the patient. LUANNE Rhodes
--- NOTE | 2020-05-06 08:36 | PC.NURSE ---
I spoke with Tracee the DCR. She stated that the patient takes suboxone, and that the physician who prescribes it is Dr Delacruz, telephone number [phone]. Tracee stated that this information has been given to Dr Henry. Tracee also said that Pt's related that patient has had a corneal implant, and wears a contact lens in his left eye, which he is supposed remove once a day. We agreed that the Pt will be allowed to sleep, and that I will contact Tracee to perform the assessment upon his awakening.
[2020-05-06 09:30] VITALS: BP 150/100; PULSE 80; RESP 17; TEMP 36.7; O2SAT 100
[2020-05-06] MEDS: cephALEXin 250 MG CAPSULE 500 MG PO (09:31)
--- NOTE | 2020-05-06 09:58 | PC.NURSE ---
Patient alert and awake. Eating breakfast tray and ambulating in room. Patient up to use the bathroom, located inside room. Oral fluids provided and linens changed. Patient is asking how he got to the ED, stating that he has no memory of what happened. Patient states that he feels like a mouse in a trap. Per RN, patient may have door open under the agreement that he remain calm and does not attempt to leave. Waiting for call back from DCR. NU Easley
--- NOTE | 2020-05-06 10:45 | PC.NURSE ---
Pt spoke with SILVANO Davis via Zoom. Susan to call again shortly. Pt becoming mildly agitated. in doorway demanding medications. A person identifying themselves as Esther García, aunt of Pt, calls. Pt informed, denies permission for me to speak about Pt condition, denies giving his truck keys to Esther so that family can move his truck and trailer.
--- NOTE | 2020-05-06 11:16 | PC.NURSE ---
pt pacing around room. Pt states that he doesn't need anything. Pt seems calm and cooperative at this time.
--- NOTE | 2020-05-06 11:37 | PC.NURSE ---
[id number] Pt stepped out of rm 13 and stated I have to go. Pt was then told that he couldnt leave and that the police would be called if he attempted to do so. Pt stated that he didnt care and then he ran out of the ambulance bay. A call to 911 was placed and PD is attempting to locate pt.
--- NOTE | 2020-05-06 11:44 | PC.NURSE ---
Pt escorted back into the department by police. Pt brought back into rm 13 and given a scrub top to change into. The door to rm 13 is now locked and the pt is under constant supervision. Pt is currently banging into the doors and yelling.
--- NOTE | 2020-05-06 11:58 | PC.NURSE ---
Patient ran out the ambulance bay doors. Nurses were attempting to talk him into returning to the department so he could grab his supplies. Patient stated he knew it was a trick to enter the department. Patient began to run down the ambulance ramp. [place] Police had been called at this point and I followed him at a distance to the gas station close by. Patient tried hiding around the building, I pointed police to his whereabouts. Police brought him back to the department approximately 10 minutes later.
[2020-05-06] MEDS: LORazepam 2 MG/ML INJ IM (12:09)
[2020-05-06] MEDS: HALOPERIDOL 5 MG/ML VIAL IM (12:10)
[2020-05-06] MEDS: diphenhydrAMINE 50 MG/ML VIAL IM (12:10)
--- NOTE | 2020-05-06 12:10 | PC.NURSE ---
Pt throwing body against closed door, throwing mattress in room, hitting door. Did not respond to verbal redirection / de-escilation. [place] PD called for assistance r/t patient aggression. Dr. Greer folres and ordered seclusion + medications. Police arrived. Pt verbally redirected to mattress. Followed commands of staff and officers. Medicated w/ ativan, haldol and benedryl. Door currently closed. Pt w/ 1:1 visualization at all times.
[2020-05-06] MEDS: BUPRENORPHINE/NALOXONE 8MG/2MG 1 TAB 3 TAB SL (12:21)
--- NOTE | 2020-05-06 12:27 | PC.NURSE ---
Nurse to nurse report with Mirtha At [phone]. SILVANO Davis will serve the patient and we will call Mirtha with ETA.
--- NOTE | 2020-05-06 12:51 | CM.SWNOTE ---
Addendum entered by Chris Galdamez 05/06/20 14:41: Update [id number] PROPERTY UTILIZATION OFFICER recieves legal packet from SILVANO Davis. PROPERTY UTILIZATION OFFICER calls Susan and reviews packet to ensure all needed documents are presents. Patient is asleep, and PROPERTY UTILIZATION OFFICER discusses this with TIO Fofana. RN and PROPERTY UTILIZATION OFFICER wake patient and patient completes call with DCR on Ipad with PROPERTY UTILIZATION OFFICER and RN in room. Patient is served by Susan. PROPERTY UTILIZATION OFFICER recieves call stating that patient's ex- is in waiting room to deliver wallet. PROPERTY UTILIZATION OFFICER provides brief therapeutic support to patient's . Patient's ex- gives wallet to PROPERTY UTILIZATION OFFICER who gives it to TIO Fofana in view of patient's ex-. Wallet will be placed with patient's other belongings for transport to next facility. Pl: Patient to be transferred to OBDULIA Detox at [facility] in [place]. LUANNE Renner Original Note: PROPERTY UTILIZATION OFFICER note PROPERTY UTILIZATION OFFICER reviews chart and checks in with TIO Fofana regarding current status for patient. TIO Fofana informs PROPERTY UTILIZATION OFFICER that RN has just spoken with facility in [place] and that patient has been accepted as OBDULIA patient at this facility. Per TIO Fofana, SILVANO Davis will be collecting papers to detainment and coming over to [facility] to serve patient and read patient his rights. PROPERTY UTILIZATION OFFICER contacts SILVANO Davis. SILVANO Davis informs PROPERTY UTILIZATION OFFICER that patient's prescriber Dr. Delacruz had communicated concerns that patient had not been getting his suboxone, and asked PROPERTY UTILIZATION OFFICER to ensure that this communication had been directed to Dr. Butterfield. PROPERTY UTILIZATION OFFICER will check in with Dr. Butterfield regarding this. Susan informs PROPERTY UTILIZATION OFFICER that she will fax packet for detainment to ED and follow up with PROPERTY UTILIZATION OFFICER once this is done. PROPERTY UTILIZATION OFFICER will wait for fax to arrive at ED and follow up with Susan at this time. LUANNE Renner
--- NOTE | 2020-05-06 12:58 | PC.NURSE ---
pt laying on mattress on side. RR 15, regular and deep.
--- NOTE | 2020-05-06 14:10 | PC.NURSE ---
pt laying on mattress with blanket covering his head. respirations 14 per minute, breaths are deep and regular
--- NOTE | 2020-05-06 14:56 | PC.NURSE ---
LUANNE Perez and I met with Miranda in [facility]. Miranda requested the keys to Pt's truck so that she could move it. I spoke to Pt and he refused numerous times to give the keys to her. I relayed this message to Miranda. Miranda handed Pt's wallet to LUANNE Perez, who handed it to me to be locked in with Pt's possessions. I did so with Bright Castro as witness.
--- NOTE | 2020-05-06 15:24 | PC.NURSE ---
Witness TIO Gore put the patients wallet (given to us by patients ) into the patients personal belonging bag.
--- NOTE | 2020-05-06 15:45 | PC.NURSE ---
pt laying on mattress. Door is closed. Pt has blanket over head
[2020-05-06] MEDS: LORazepam 0.5 MG TABLET 2 MG PO (16:33)
[2020-05-06 16:41] VITALS: BP 147/80; PULSE 86; RESP 16; TEMP 36.4; O2SAT 97
--- NOTE | 2020-05-22 14:54 | PC.NURSE ---
patient picked up bag of belongings that were locked in ER cabinet.
== END 2020-05-06 16:45 ==
PROVIDERS: Emergency Medicine; Emergency Provider Emergency Medicine; Referring Provider Emergency Medicine
DX: R45.851 Suicidal ideations (principal); R45.1 Restlessness and agitation; F33.3 Major depressive disorder, recurrent, severe with psychotic symptoms; F13.129 Sedative, hypnotic or anxiolytic abuse with intoxication, unspecified
CPT/HCPCS: 80053; 80305; 80320; 80329; 81001; 81003; 81015; 84443; 85025; 87077; 87086; 87147; 87186; 93005; 96372; 99285; G0480; J1200; J1630; J2060

== ENCOUNTER 2020-05-23 22:09 | Emergency (ER) | payer SELFPAY ==
[2020-05-23 22:14] VITALS: BP 109/61; PULSE 84; RESP 15; TEMP 36.4; O2SAT 95
[2020-05-23 22:49] VITALS: BP 109/61; PULSE 74; RESP 18; O2SAT 92
--- NOTE | 2020-05-23 22:53 | PC.NURSE ---
patient reports he took benzos and alcohol, asked we do not call his .
[2020-05-23 23:05] LABS: Add Manual Diff / Slide Review NO; Basophils Absolute Auto 100 /uL (0-100); Basophils Percent Auto 0.8 % (0-2); Eosinophils Absolute Auto 500 /uL (0-450); Hematocrit 40.2 % (41-53); Hemoglobin 13.1 g/dL (13.5-17.5); Lymphocytes Absolute Auto 2100 /uL (1100-4500); Lymphocytes Percent Auto 27.1 % (25-40); Mean Corpuscular HGB Conc 32.5 % (30-36); Mean Corpuscular Hemoglobin 26.7 PG (26-34); Monocytes Absolute Auto 700 /uL (0-900); Monocytes Percent Auto 8.9 % (3-14); Neutrophils Absolute Auto 4400 /uL (1500-7000); Neutrophils Percent Auto 57.2 % (50-75); Platelet Count 152 X10^3/uL (150-400); Red Cell Distribution Width 16.7 % (11.6-14.8); White Blood Cell Count 7.7 X10^3/uL (4.5-11.0)
[2020-05-23 23:16] LABS: Acetaminophen < 10 ug/mL (10-30); Alanine Aminotransferase 23 IU/L (<50); Albumin 4.3 g/dL (3.5-5.0); Albumin Globulin Ratio 1.5 (1.0-2.8); Alkaline Phosphatase 81 U/L (38-126); Aspartate Aminotransferase 27 IU/L (17-59); BUN Creatinine Ratio 29.5 (6-22); Bilirubin Total 0.6 mg/dL (0.2-1.3); Bilirubin Unconjugated 0.5 mg/dL (0.0-1.1); Blood Urea Nitrogen 26 mg/dL (9-20); Calcium 9.5 mg/dL (8.4-10.2); Carbon Dioxide 31 mmol/L (22-32); Chloride 103 mmol/L (98-107); Estimated Glomerular Filt Rate > 60.0 mL/min (>60); Ethanol (ETOH) < 10 mg/dL; Globulin 2.9 g/dL (1.7-4.1); Glucose 119 mg/dL (70-100); HEMOLYSIS < 15 (0-50); Lactate (Lactic Acid) 0.6 mmol/L (0.7-2.1); Potassium 4.2 mmol/L (3.4-5.1); Salicylate < 1.0 mg/dL (<20); Sodium 141 mmol/L (137-145); Total Protein 7.2 g/dL (6.3-8.2)
[2020-05-24] VITALS (72 sets, daily range): BP systolic 100–138; BP diastolic 55–74; PULSE 68–82; RESP 16–20; O2SAT 88–98
--- NOTE | 2020-05-24 00:10 | PC.NURSE ---
patient resting on stretcher with eyes closed
--- NOTE | 2020-05-24 01:21 | ED_ITS ---
HPI - Overdose <Ferny Henry DO - Last Filed: 05/25/20 07:11> General Chief Complaint: Toxicology Problem Stated Complaint: Intoxication Time Seen by Provider: 05/23/20 22:12 Source: patient and EMS Mode of arrival: EMS Limitations: altered mental status History of Present Illness HPI Narrative: 40-year-old male former smoker with history of extensive benzodiazepine abuse and mental health issues presents by EMS for evaluation of altered mental status. The patient was found wandering in a local park and brought here for evaluation. He denies ongoing use of benzodiazepines. He juanita es any injury, fall or assault. He denies any alcohol or street drugs. Denies any suicidal or homicidal ideation. He has been here under similar circumstances in the past. MD complaint: accidental overdose Onset (ago): hour(s) Intent: unwilling to say Associated symptoms: lethargy Treatments Prior to Arrival: none Related Data Previous Rx's Medication Instructions Recorded ondansetron 4 mg PO TID-QID PRN #10 tab 05/24/20 Allergies Allergy/AdvReac Type Severity Reaction Status Date / Time No Known Drug Allergies Allergy Verified 04/27/20 05:02 Review of Systems <Ferny Henry DO - Last Filed: 05/25/20 07:11> Constitutional Constitutional: Denies chills, Denies fatigue, Denies fever(s), Denies frequent falls, Denies lethargy and Denies weakness Eyes Eyes: Denies change in vision, Denies eye discharge, Denies irritation and Denies loss of vision ENT Ears, Nose, Mouth, and Throat: Denies change in voice, Denies dizziness, Denies neck pain, Denies sore throat and Denies throat swelling Cardiovascular Cardiovascular: Denies chest pain, Denies irregular heart rhythm, Denies lig htheadedness, Denies palpitations, Denies dyspnea, Denies dyspnea on exertion and Denies orthopnea Respiratory Respiratory: Denies cough, Denies dyspnea, Denies dyspnea on exertion and Denies wheezing Gastrointestinal Gastrointestinal: Denies abdominal pain, Denies change in bowel habits, Denies diarrhea, Denies nausea and Denies vomiting Musculoskeletal Musculoskeletal: Denies neck pain and Denies numbness Integumentary/Breasts Skin/Breast: Denies pruritus, Denies erythema, Denies rash and Denies wounds Neurologic Neurologic: Denies behavioral changes, Denies confusion, Denies dizziness, Denies frequent falls, Denies loss of vision, Denies numbness and Denies weakness Psychiatric Psychiatric: Denies anxiety, Denies behavioral changes, Denies confusion, Denies depression, Denies homicidal ideation and Denies suicidal ideation Endocrine Endocrine: Denies fatigue, Denies flushing and Denies palpitations Hematologic/Lymphatic Hematologic/Lymphatic: Denies easy bruising Allergic/Immunologic Allergic/Immunologic: Denies urticaria, Denies throat swelling and Denies wheezing Patient History <Ferny Henry DO - Last Filed: 05/25/20 07:11> Medical History Anxiety (Acute) Drug abuse (Acute) Social History Smoking Status: Former smoker Smoking Status: Former smoker alcohol intake frequency: a few times a month Substance Use Type: sedatives and methamphetamine Exam <Ferny Henry DO - Last Filed: 05/25/20 07:11> Narrative Exam Narrative: GENERAL: [40] year old patient appears stated age. Well- nourished, well-developed patient, in mild distress. Sleepy but easily arousable. HEAD: Atraumatic. Normocephalic. EYES: Pupils equal round and reactive. Extraocular motions intact. No scleral icterus. No injection or drainage. ENT: Nose without bleeding, purulent drainage. Throat without erythema, tonsillar hypertrophy or exudate. Airway patent. NECK: Trachea midline. Non tender CARDIOVASCULAR: Regular rate and rhythm without murmurs, gallops, or rubs. RESPIRATORY: Clear to auscultation. Breath sounds equal bilaterally. No wheezes, rales, or rhonchi. GASTROINTESTINAL: Abdomen soft, non-tender, nondistended. EXTREMITIES: No edema or joint tenderness. BACK: Nontender without deformity or crepitance. No flank tenderness. NEURO: No focal findings. SKIN: No rash or erythema of visible areas Initial Vital Signs Initial Vital Signs: Vital Signs Temperature 97.6 F 05/23/20 22:14 Pulse Rate 84 05/23/20 22:14 Respiratory Rate 15 05/23/20 22:14 Blood Pressure 109/61 05/23/20 22:14 Pulse Oximetry 95 05/23/20 22:14 <Nesha Gamboa DO - Last Filed: 05/24/20 14:11> Initial Vital Signs Initial Vital Signs: Vital Signs Temperature 97.6 F 05/23/20 22:14 Pulse Rate 84 05/23/20 22:14 Respiratory Rate 15 05/23/20 22:14 Blood Pressure 109/61 05/23/20 22:14 Pulse Oximetry 95 05/23/20 22:14 Course <Ferny Henry DO - Last Filed: 05/25/20 07:11> Orders Ordered: ED Orders 05/24/20 06:20 Urine Drug Screen, Rapid Stat Vital Signs Vital signs: Vital Signs - 8 hr 05/24/20 06:15 05/24/20 07:01 05/24/20 07:05 Pulse Rate 72 76 76 Respiratory Rate Blood Pressure 136/66 Pulse Oximetry 95 93 93 05/24/20 07:10 05/24/20 07:15 05/24/20 07:20 Pulse Rate 79 77 79 Respiratory Rate Blood Pressure Pulse Oximetry 92 93 92 05/24/20 07:25 05/24/20 07:30 05/24/20 07:35 Pulse Rate 79 82 80 Respiratory Rate Blood Pressure Pulse Oximetry 92 93 91 05/24/20 07:40 05/24/20 07:45 05/24/20 07:50 Pulse Rate 80 80 81 Respiratory Rate Blood Pressure Pulse Oximetry 92 93 92 05/24/20 07:55 05/24/20 08:00 05/24/20 08:05 Pulse Rate 81 77 79 Respiratory Rate Blood Pressure Pulse Oximetry 92 94 94 05/24/20 08:10 05/24/20 08:15 05/24/20 08:20 Pulse Rate 79 80 81 Respiratory Rate Blood Pressure Pulse Oximetry 92 92 93 05/24/20 08:25 05/24/20 08:30 05/24/20 08:45 Pulse Rate 80 77 80 Respiratory Rate Blood Pressure 100/57 L Pulse Oximetry 94 94 93 05/24/20 10:49 Pulse Rate 72 Respiratory Rate 18 Blood Pressure 110/74 Pulse Oximetry 98 <Nesha Gamboa DO - Last Filed: 05/24/20 14:11> Orders Ordered: ED Orders 05/24/20 06:20 Urine Drug Screen, Rapid Stat Vital Signs Vital signs: Vital Signs - 8 hr 05/24/20 06:15 05/24/20 07:01 05/24/20 07:05 Pulse Rate 72 76 76 Respiratory Rate Blood Pressure 136/66 Pulse Oximetry 95 93 93 05/24/20 07:10 05/24/20 07:15 05/24/20 07:20 Pulse Rate 79 77 79 Respiratory Rate Blood Pressure Pulse Oximetry 92 93 92 05/24/20 07:25 05/24/20 07:30 05/24/20 07:35 Pulse Rate 79 82 80 Respiratory Rate Blood Pressure Pulse Oximetry 92 93 91 05/24/20 07:40 05/24/20 07:45 05/24/20 07:50 Pulse Rate 80 80 81 Respiratory Rate Blood Pressure Pulse Oximetry 92 93 92 05/24/20 07:55 05/24/20 08:00 05/24/20 08:05 Pulse Rate 81 77 79 Respiratory Rate Blood Pressure Pulse Oximetry 92 94 94 05/24/20 08:10 05/24/20 08:15 05/24/20 08:20 Pulse Rate 79 80 81 Respiratory Rate Blood Pressure Pulse Oximetry 92 92 93 05/24/20 08:25 05/24/20 08:30 05/24/20 08:45 Pulse Rate 80 77 80 Respiratory Rate Blood Pressure 100/57 L Pulse Oximetry 94 94 93 05/24/20 10:49 Pulse Rate 72 Respiratory Rate 18 Blood Pressure 110/74 Pulse Oximetry 98 MDM - Overdose <Ferny Henry, DO - Last Filed: 05/25/20 07:11> Lab Data Result diagrams: 05/23/20 22:25 05/23/20 22:25 Labs: Lab Results 05/23/20 05/23/20 05/23/20 Range/Units 22:25 22:25 22:25 WBC 7.7 (4.5-11.0) X10^3/uL RBC 4.90 (4.5-5.9) X10^6/uL Hgb 13.1 L (13.5-17.5) g/dL Hct 40.2 L (41-53) % MCV 82.0 (80-100) fL MCH 26.7 (26-34) PG MCHC 32.5 (30-36) % RDW 16.7 H (11.6-14.8) % Plt Count 152 (150-400) X10^3/uL Neut % (Auto) 57.2 (50-75) % Lymph % (Auto) 27.1 (25-40) % [place] % (Auto) 8.9 (3-14) % Eos % (Auto) 6.0 H (2-4) % Baso % (Auto) 0.8 (0-2) % Neut # (Auto) 4400 (6610-0035) /uL Lymph # (Auto) 2100 (5639-9232) /uL [place] # (Auto) 700 (0-900) /uL Eos # (Auto) 500 H (0-450) /uL Baso # (Auto) 100 (0-100) /uL Sodium 141 (137-145) mmol/L Potassium 4.2 (3.4-5.1) mmol/L Chloride 103 (98-107) mmol/L Carbon Dioxide 31 (22-32) mmol/L BUN 26 H (9-20) mg/dL Creatinine 0.88 (0.66-1.25) mg/dL Estimated GFR > 60.0 (>60) mL/min BUN/Creatinine Ratio 29.5 H (6-22) Glucose 119 H (70-100) mg/dL Lactate 0.6 L (0.7-2.1) mmol/L Calcium 9.5 (8.4-10.2) mg/dL Total Bilirubin 0.6 (0.2-1.3) mg/dL Conjugated Bilirubin 0.0 (0.0-0.3) md/dL Unconjugated Bilirubin 0.5 (0.0-1.1) mg/dL AST 27 (17-59) IU/L ALT 23 (<50) IU/L Alkaline Phosphatase 81 (38-126) U/L Total Protein 7.2 (6.3-8.2) g/dL Albumin 4.3 (3.5-5.0) g/dL Globulin 2.9 (1.7-4.1) g/dL Albumin/Globulin Ratio 1.5 (1.0-2.8) Salicylates < 1.0 (<20) mg/dL U Opiates 300ng/mL cut (Negative) Ur Oxycodone Screen (Negative) Urine Methadone Screen (Negative) Acetaminophen < 10 L (10-30) ug/mL Ur Barbiturates Screen (Negative) U Tricyclic Antidepress (Negative) Ur Phencyclidine Scrn (Negative) Ur Amphetamines Screen (Negative) U Methamphetamines Scrn (Negative) Ur MDMA Scrn (Ecstasy) (Negative) U Benzodiazepines Scrn (Negative) Urine Cocaine Screen (Negative) U Marijuana (THC) Screen (Negative) Ethyl Alcohol < 10 ( - 10) mg/dL 05/24/20 Range/Units 06:20 WBC (4.5-11.0) X10^3/uL RBC (4.5-5.9) X10^6/uL Hgb (13.5-17.5) g/dL Hct (41-53) % MCV (80-100) fL MCH (26-34) PG MCHC (30-36) % RDW (11.6-14.8) % Plt Count (150-400) X10^3/uL Neut % (Auto) (50-75) % Lymph % (Auto) (25-40) % [place] % (Auto) (3-14) % Eos % (Auto) (2-4) % Baso % (Auto) (0-2) % Neut # (Auto) (0630-6180) /uL Lymph # (Auto) (1979-1773) /uL [place] # (Auto) (0-900) /uL Eos # (Auto) (0-450) /uL Baso # (Auto) (0-100) /uL Sodium (137-145) mmol/L Potassium (3.4-5.1) mmol/L Chloride (98-107) mmol/L Carbon Dioxide (22-32) mmol/L BUN (9-20) mg/dL Creatinine (0.66-1.25) mg/dL Estimated GFR (>60) mL/min BUN/Creatinine Ratio (6-22) Glucose (70-100) mg/dL Lactate (0.7-2.1) mmol/L Calcium (8.4-10.2) mg/dL Total Bilirubin (0.2-1.3) mg/dL Conjugated Bilirubin (0.0-0.3) md/dL Unconjugated Bilirubin (0.0-1.1) mg/dL AST (17-59) IU/L ALT (<50) IU/L Alkaline Phosphatase (38-126) U/L Total Protein (6.3-8.2) g/dL Albumin (3.5-5.0) g/dL Globulin (1.7-4.1) g/dL Albumin/Globulin Ratio (1.0-2.8) Salicylates (<20) mg/dL U Opiates 300ng/mL cut Negative (Negative) Ur Oxycodone Screen Negative (Negative) Urine Methadone Screen Negative (Negative) Acetaminophen (10-30) ug/mL Ur Barbiturates Screen Negative (Negative) U Tricyclic Antidepress Positive H (Negative) Ur Phencyclidine Scrn Negative (Negative) Ur Amphetamines Screen Negative (Negative) U Methamphetamines Scrn Negative (Negative) Ur MDMA Scrn (Ecstasy) Negative (Negative) U Benzodiazepines Scrn Positive H (Negative) Urine Cocaine Screen Negative (Negative) U Marijuana (THC) Screen Negative (Negative) Ethyl Alcohol ( - 10) mg/dL <Nesha Gamboa, DO - Last Filed: 05/24/20 14:11> Lab Data Labs: Lab Results 05/23/20 05/23/20 05/23/20 Range/Units 22:25 22:25 22:25 WBC 7.7 (4.5-11.0) X10^3/uL RBC 4.90 (4.5-5.9) X10^6/uL Hgb 13.1 L (13.5-17.5) g/dL Hct 40.2 L (41-53) % MCV 82.0 (80-100) fL MCH 26.7 (26-34) PG MCHC 32.5 (30-36) % RDW 16.7 H (11.6-14.8) % Plt Count 152 (150-400) X10^3/uL Neut % (Auto) 57.2 (50-75) % Lymph % (Auto) 27.1 (25-40) % [place] % (Auto) 8.9 (3-14) % Eos % (Auto) 6.0 H (2-4) % Baso % (Auto) 0.8 (0-2) % Neut # (Auto) 4400 (7655-7532) /uL Lymph # (Auto) 2100 (4695-5979) /uL [place] # (Auto) 700 (0-900) /uL Eos # (Auto) 500 H (0-450) /uL Baso # (Auto) 100 (0-100) /uL Sodium 141 (137-145) mmol/L Potassium 4.2 (3.4-5.1) mmol/L Chloride 103 (98-107) mmol/L Carbon Dioxide 31 (22-32) mmol/L BUN 26 H (9-20) mg/dL Creatinine 0.88 (0.66-1.25) mg/dL Estimated GFR > 60.0 (>60) mL/min BUN/Creatinine Ratio 29.5 H (6-22) Glucose 119 H (70-100) mg/dL Lactate 0.6 L (0.7-2.1) mmol/L Calcium 9.5 (8.4-10.2) mg/dL Total Bilirubin 0.6 (0.2-1.3) mg/dL Conjugated Bilirubin 0.0 (0.0-0.3) md/dL Unconjugated Bilirubin 0.5 (0.0-1.1) mg/dL AST 27 (17-59) IU/L ALT 23 (<50) IU/L Alkaline Phosphatase 81 (38-126) U/L Total Protein 7.2 (6.3-8.2) g/dL Albumin 4.3 (3.5-5.0) g/dL Globulin 2.9 (1.7-4.1) g/dL Albumin/Globulin Ratio 1.5 (1.0-2.8) Salicylates < 1.0 (<20) mg/dL U Opiates 300ng/mL cut (Negative) Ur Oxycodone Screen (Negative) Urine Methadone Screen (Negative) Acetaminophen < 10 L (10-30) ug/mL Ur Barbiturates Screen (Negative) U Tricyclic Antidepress (Negative) Ur Phencyclidine Scrn (Negative) Ur Amphetamines Screen (Negative) U Methamphetamines Scrn (Negative) Ur MDMA Scrn (Ecstasy) (Negative) U Benzodiazepines Scrn (Negative) Urine Cocaine Screen (Negative) U Marijuana (THC) Screen (Negative) Ethyl Alcohol < 10 ( - 10) mg/dL 05/24/20 Range/Units 06:20 WBC (4.5-11.0) X10^3/uL RBC (4.5-5.9) X10^6/uL Hgb (13.5-17.5) g/dL Hct (41-53) % MCV (80-100) fL MCH (26-34) PG MCHC (30-36) % RDW (11.6-14.8) % Plt Count (150-400) X10^3/uL Neut % (Auto) (50-75) % Lymph % (Auto) (25-40) % [place] % (Auto) (3-14) % Eos % (Auto) (2-4) % Baso % (Auto) (0-2) % Neut # (Auto) (9220-2296) /uL Lymph # (Auto) (5093-5007) /uL [place] # (Auto) (0-900) /uL Eos # (Auto) (0-450) /uL Baso # (Auto) (0-100) /uL Sodium (137-145) mmol/L Potassium (3.4-5.1) mmol/L Chloride (98-107) mmol/L Carbon Dioxide (22-32) mmol/L BUN (9-20) mg/dL Creatinine (0.66-1.25) mg/dL Estimated GFR (>60) mL/min BUN/Creatinine Ratio (6-22) Glucose (70-100) mg/dL Lactate (0.7-2.1) mmol/L Calcium (8.4-10.2) mg/dL Total Bilirubin (0.2-1.3) mg/dL Conjugated Bilirubin (0.0-0.3) md/dL Unconjugated Bilirubin (0.0-1.1) mg/dL AST (17-59) IU/L ALT (<50) IU/L Alkaline Phosphatase (38-126) U/L Total Protein (6.3-8.2) g/dL Albumin (3.5-5.0) g/dL Globulin (1.7-4.1) g/dL Albumin/Globulin Ratio (1.0-2.8) Salicylates (<20) mg/dL U Opiates 300ng/mL cut Negative (Negative) Ur Oxycodone Screen Negative (Negative) Urine Methadone Screen Negative (Negative) Acetaminophen (10-30) ug/mL Ur Barbiturates Screen Negative (Negative) U Tricyclic Antidepress Positive H (Negative) Ur Phencyclidine Scrn Negative (Negative) Ur Amphetamines Screen Negative (Negative) U Methamphetamines Scrn Negative (Negative) Ur MDMA Scrn (Ecstasy) Negative (Negative) U Benzodiazepines Scrn Positive H (Negative) Urine Cocaine Screen Negative (Negative) U Marijuana (THC) Screen Negative (Negative) Ethyl Alcohol ( - 10) mg/dL MDM Narrative Medical decision making narrative: The patient signed out to me by Dr. Henry seen and evaluated him he wakes up he does not remember exactly what happens. He denies any suicidal or homicidal ideations. He is given breakfast and discharged. Discharge Plan Departure Patient Disposition: Home Clinical Impression: Benzodiazepine abuse Discharge Date/Time: 05/24/20 10:30 Instructions: DI for Substance Use Disorder Activity Restrictions/Additional Instructions: *You have been diagnosed with [ benzo abuse ] *What to do: *Take medications as directed *Follow up with your primary care provider in 2-3 days, call for an appointment. Let them know you were seen in the Emergency Department and that we ask that you be seen in follow up *Return to ER if you should have any new, worsening or concerning symptoms Prescriptions: New ondansetron 4 mg tablet,disintegrating 4 mg PO TID-QID PRN (Reason: nausea and vomiting) Qty: 10 RF: 0
[2020-05-24 06:43] LABS: UR Morphine/Opiate cutoff 300 Negative (Negative); Ur Creatinine Normal (Normal); Ur Specific Gravity Normal (Normal); Urine Amphetamines Negative (Negative); Urine Barbiturates Negative (Negative); Urine Benzodiazepines Positive (Negative); Urine Cocaine Negative (Negative); Urine MDMA Negative (Negative); Urine Methadone Negative (Negative); Urine Methamphetamines Negative (Negative); Urine Oxycodone Negative (Negative); Urine Phencyclidine Negative (Negative); Urine Tetrahydrocannabinol Negative (Negative); Urine Tricyclic Antidepressant Positive (Negative); Urine pH Normal (Normal)
== END 2020-05-24 10:30 | disposition home or self-care (01) ==
PROVIDERS: Emergency Medicine; Emergency Provider Emergency Medicine
DX: F13.10 Sedative, hypnotic or anxiolytic abuse, uncomplicated (principal)
CPT/HCPCS: 36415; 80053; 80076; 80305; 80320; 80329; 83605; 85025; 99283; G0480